=== PATIENT | female | born 1965 | race Hispanic/Latino ===

== ENCOUNTER 2017-10-12 14:04 | Emergency (ER) | payer SELFPAY ==
--- NOTE | 2017-10-12 17:44 | XRay Report ---
FINAL REPORT EXAM: XR CHEST ROUTINE 2V HISTORY: couging congestion TECHNIQUE: Two view chest PA and lateral PRIORS: None. FINDINGS: Cardiac and mediastinal contours are unremarkable. No focal pulmonary infiltrate is identified. No pleural fluid collection seen. Pulmonary vasculature is unremarkable. IMPRESSION: Negative two-view chest
--- NOTE | 2017-10-12 19:22 | Emergency Department Report ---
HPI - General Chief Complaint: Upper Respiratory Infection Time Seen by Provider: 10/12/17 19:22 - HPI HPI: Patient complains of cough and congestion times one week. She reports we then and says that she might have the flu. Denies any body aches. Reports that she is having sore chest with cough and. No chest pain without coughing. She says she's been coughing so much that her stomach is also sore. Taking over-the- counter cold and cough without any relief. Patient denies any medical problems. Denies any shortness of breath or nausea or vomiting. She reports that she had chills and fever in the beginning and but she thinks that her fever broke. Denies any diarrhea. Denies any urinary burning frequency or urgency pain is 5 out of 10 and sore. Worse with cough and and no pain without coughing. ED Past Medical Hx - Past Medical History Previous Medical History?: No - Surgical History Past Surgical History?: Yes Additional Surgical History: knee c section - Family History Family history: no significant - Social History Smoking Status: Never Smoker Substance Use Type: None - Medications Home Medications: Home Medications Medication Instructions Recorded Confirmed Last Taken Type ALBUTEROL Inhaler [ProAir HFA 2 puff IH Q6H PRN #1 inhalation 10/12/17 Unknown Rx Inhaler] Amoxicillin/K Clav Tab [Augmentin 1 tab PO Q12HR 10 Days #20 tab 10/12/17 Unknown Rx 875 mg] Cetirizine HCl [ZyrTEC] 10 mg PO QAM 14 Days #14 capsule 10/12/17 Unknown Rx Fluticasone [Flonase] 1 spray NS QDAY 14 Days #1 bottle 10/12/17 Unknown Rx guaiFENesin/CODEINE [Robitussin AC] 10 ml PO Q12H PRN #100 ml 10/12/17 Unknown Rx methylPREDNISolone [Medrol Dose 4 mg PO QAM 6 Days #1 pack 10/12/17 Unknown Rx Tashi] ED Review of Systems ROS: Stated complaint: FLU LIKE SYMPTOMS Other details as noted in HPI Comment: All other systems reviewed and negative Constitutional: chills, fever Eyes: denies: eye discharge, vision change ENT: congestion. denies: ear pain, throat pain Respiratory: cough, wheezing. denies: orthopnea, shortness of breath, SOB with exertion, SOB at rest, stridor Cardiovascular: chest pain (chest pain with cough). denies: palpitations, dyspnea on exertion, edema, syncope, paroxysmal nocturnal dyspnea Gastrointestinal: denies: abdominal pain, nausea, vomiting Genitourinary: denies: dysuria, frequency, hematuria Musculoskeletal: myalgia (report that her abdominal muscles are sore from coughing). denies: back pain, joint swelling, arthralgia Skin: denies: rash Neurological: denies: headache, weakness, numbness, paresthesias, confusion, abnormal gait, vertigo Physical Exam - Physical Exam Vital Signs: Vital Signs 10/12/17 15:35 Temperature 98.5 F Pulse Rate 95 H Respiratory 16 Rate Blood Pressure 122/65 O2 Sat by Pulse 95 Oximetry Vital Signs 10/12/17 10/12/17 10/12/17 15:35 19:44 19:45 Temperature 98.5 F Pulse Rate 95 H 80 Pulse Rate [ 82 Posterior] Respiratory 16 18 Rate Respiratory 18 Rate [Posterior ] Blood Pressure 122/65 Blood Pressure 127/72 [Right] O2 Sat by Pulse 95 Oximetry 10/12/17 20:12 Temperature Pulse Rate Pulse Rate [ 85 Posterior] Respiratory Rate Respiratory 21 Rate [Posterior ] Blood Pressure Blood Pressure [Right] O2 Sat by Pulse Oximetry General: This is a 52-year-old female well-nourished well-developed in no acute distress. Physical Exam: Head: Normocephalic atraumatic Ears:BIateral TM congested without erythema and loss of bony landmarks. Kehinde EAC with normal exam. No mastoid bone tenderness. Mouth: Moist, no pharyngeal erythema or exudate . No tonsillar erythema or exudate. UVULA midline and oral airways patent. No peritonsillar abscess Neck: Nontender to palpate, supple, normal range of motion. No adenopathy. No c- spine tenderness. Abdomen: Tender to palpate in all quadrants, no guarding or rebound tenderness. Positive bowel sounds in all quadrants and no CVA tenderness. Nose: Bilateral nasal mucosa congested with clear drainage. Maxillary and frontal sinuses non-tender to palpate. Eyes: Sclerae and conjunctiva without injection. Bilateral pupils equal and reactive to light. Bilateral lids are normal. Normal accommodation.BEOMI Lungs: Clear to auscultate bilaterally, no rhonchi wheezes or rales. Normal work of breathing and no chest wall tenderness, cough CV: S1, S2. Regular rate and rhythm negative murmur. Capillary refill is less than 3 seconds Skin: Clean dry and intact, no rashes or lesions Psych: Normal mood and behavior ED Course Vital Signs 10/12/17 15:35 Temperature 98.5 F Pulse Rate 95 H Respiratory 16 Rate Blood Pressure 122/65 O2 Sat by Pulse 95 Oximetry Vital Signs 10/12/17 10/12/17 10/12/17 15:35 19:44 19:45 Temperature 98.5 F Pulse Rate 95 H 80 Pulse Rate [ 82 Posterior] Respiratory 16 18 Rate Respiratory 18 Rate [Posterior ] Blood Pressure 122/65 Blood Pressure 127/72 [Right] O2 Sat by Pulse 95 Oximetry 10/12/17 20:12 Temperature Pulse Rate Pulse Rate [ 85 Posterior] Respiratory Rate Respiratory 21 Rate [Posterior ] Blood Pressure Blood Pressure [Right] O2 Sat by Pulse Oximetry - Reevaluation(s) Reevaluation #1: 10/12/17 20:35 Patient given albuterol 5 mg and Atrovent 0.5 mg nebulizer, prednisone 60 mg by mouth and Tylenol with codeine cough medicine 10 mL by mouth in emergency room. Tolerated oral hydration without any nausea or vomiting. Lung sounds or clear after nebulizer treatment. ED Medical Decision Making - Lab Data Influenza A and B- - Radiology Data Radiology results: report reviewed Chest x-ray reveals no acute cardiopulmonary findings - Medical Decision Making ED course: Should he reports cough and congestion for over a week. Influenza A and B is negative and her chest x-ray negative for any cardiopulmonary findings. Patient has chest soreness only with cough and and cardiac risk score is low. Results were relayed to patient. Patient with acute bronchitis with upper respiratory infection with cough and congestion. I discussed with patient her diagnosis treatment plan and follow-up. She voiced understanding. Patient was given albuterol 5 mg, Atrovent 0.5 mg nebulizer treatment, Deltasone 60 mg by mouth and Tylenol with Codeine 10 mL by mouth in emergency room. Status post nebulizer treatment, lungs sounds are clear. Patient discharged home with her family in stable condition with prescription for Zyrtec , Flonase, albuterol inhaler, Medrol Dosepak and guaifenesin with codeine. She does have a primary care physician and is aware that she needs to follow up in 2 days. Critical care attestation.: If time is entered above; I have spent that time in minutes in the direct care of this critically ill patient, excluding procedure time. ED Disposition Clinical Impression: URI with cough and congestion Acute bronchitis Qualifiers: Bronchitis organism: unspecified organism Qualified Code(s): J20.9 - Acute bronchitis, unspecified Disposition: DC-01 TO HOME OR SELFCARE Is pt being admited?: No Does the pt Need Aspirin: No Condition: Stable Instructions: Acute Bronchitis (ED), Acute Cough (ED), Upper Respiratory Infection (ED) Additional Instructions: Please increase her fluid intake to 2-3 L of water, Gatorade and/or Take Medications prescribed. Cough medicine can cause drowsiness. Do not drive or operate heavy machinery while taking this medication Please follow up with a primary care physician in 2 days Use Flonase and Zyrtec to help to relieve nasal congestion. Prescriptions: ALBUTEROL Inhaler [ProAir HFA Inhaler] 2 puff IH Q6H PRN #1 inhalation PRN Reason: WHEEZING/COUGH Amoxicillin/K Clav Tab [Augmentin 875 mg] 1 tab PO Q12HR 10 Days #20 tab Cetirizine HCl [ZyrTEC] 10 mg PO QAM 14 Days #14 capsule Fluticasone [Flonase] 1 spray NS QDAY 14 Days #1 bottle guaiFENesin/CODEINE [Robitussin AC] 10 ml PO Q12H PRN #100 ml PRN Reason: Cough methylPREDNISolone [Medrol Dose Tashi] 4 mg PO QAM 6 Days #1 pack Referrals: PRIMARY CAREMD [Primary Care Provider] - 10/14/17 Forms: Work/School Release Form(ED)
[2017-10-12] MEDS ORDERED: DELTASONE PO ONE (19:33)
[2017-10-12] MEDS ORDERED: PROVENTIL IH ONE (19:33)
[2017-10-12] MEDS ORDERED: TYLENOL/CODEINE PO ONE (19:33)
[2017-10-12] MEDS ORDERED: ATROVENT IH ONE (19:33)
[2017-10-12 19:45] VITALS: BP 127/72
== END 2017-10-12 20:56 | disposition home or self-care (01) ==
LOC: ED 14:04
DX: J20.9 Acute bronchitis, unspecified (principal)
CPT/HCPCS: 71046; 87400; 94640; 99283; J7512